=== PATIENT | male | born 1955 | race Caucasian/White ===

== ENCOUNTER 2024-01-28 08:04 | Outpatient (CLI) | payer MEDICARE, BC | END 2024-01-28 08:05 | disposition home or self-care (01) | LOC: CSHSLEEP 08:04 | PROVIDERS: ATTEND Family Medicine | DX: G47.10 Hypersomnia, unspecified (principal); G47.9 Sleep disorder, unspecified; R53.83 Other fatigue; R06.83 Snoring; G47.00 Insomnia, unspecified; G47.33 Obstructive sleep apnea (adult) (pediatric) | CPT/HCPCS: 95810 ==